=== PATIENT | female | born 1985 ===

== ENCOUNTER 2020-08-07 22:40 | Emergency (ER) | payer MEDICAID, OTHER ==
[~2020-08-07] VITALS: Ht 157.5 cm; Wt 74.8 kg
--- NOTE | 2020-08-08 01:07 | NUR ---
pt c/o of increased anxiety over the last 5 days. pt reports having cold and hot flashes, headaches, and sometimes her throat feeling like its closing. she reports panic attacks and has not had any in the past. pt is resting in bed in a calm, flat mood. nadn attached to monitors, vss. bed in low position, rails engaged. call light on lap at bedside translating for pt. translation form signed at registration. armband in place. wctm.
[2020-08-08] MEDS ORDERED: KETOROLAC 30 MG/1 ML ONE (02:54)
[2020-08-08] MEDS ORDERED: PROCHLORPERAZINE 5 MG/ML, 2ML ONE (02:54)
[2020-08-08] MEDS ORDERED: DIPHENHYDRAMINE 50 MG/ML, 1ML ONE (02:54)
[2020-08-08] MEDS ORDERED: SODIUM CHLORIDE FLUSH 10ML SYR IVF ONE (03:00)
[2020-08-08] MEDS ORDERED: SODIUM CHLORIDE 0.9% 1,000ML IVBOLUS ONE (03:00)
[2020-08-08] MEDS ORDERED: DIPHENHYDRAMINE 50 MG/ML, 1ML IVPush ONE (03:00)
[2020-08-08] MEDS ORDERED: KETOROLAC 30 MG/1 ML IVPush ONE (03:00)
[2020-08-08] MEDS ORDERED: PROCHLORPERAZINE 5 MG/ML, 2ML IVPush ONE (03:00)
[2020-08-08 03:28] LABS: ANION GAP 6 mmol/L (5-15); CALCIUM 9.3 mg/dL (8.5-10.1); CHLORIDE 107 mmol/L (98-107); CREATININE 0.63 mg/dL (0.55-1.02)
[2020-08-08 03:38] LABS: BASOPHILS % (AUTO) 0 % (0-1); EOSINOPHILS % (AUTO) 2 % (1-7); LYMPHOCYTES % (AUTO) 45 % (22-44); MEAN CORPUSCULAR HEMOGLOBIN 27.9 pg (27.0-34.8); MEAN CORPUSCULAR HGB CONC 34.7 g/dL (32.4-35.8); MEAN PLATELET VOLUME 8.1 fL (7.4-10.4); MONOCYTES % (AUTO) 6 % (2-9); NEUTROPHILS % (AUTO) 47 % (42-75); PLATELET COUNT 302 x10^3/uL (130-400); RED BLOOD COUNT 5.27 x10^6/uL (3.82-5.3)
--- NOTE | 2020-08-08 03:46 | NUR ---
Patient is resting comfortably in bed. Bed in lowest, rails engaged, call light on lap. Vital Signs within normal limits. WCTM.
[2020-08-08 04:48] VITALS: BP 119/65
--- NOTE | 2020-08-08 04:52 | NUR ---
Patient and spouse given discharge instructions and they have confirmed that they understand the instructions. Patient ambulatory with steady gait. NAD, all questions answered appropriately, denies additional needs at this time. No personal belongings left in room after discharge.
== END 2020-08-08 04:54 | disposition home or self-care (01) ==
LOC: ED 08-08 04:48
DX: G44.219 Episodic tension-type headache, not intractable (principal); F41.1 Generalized anxiety disorder; J02.8 Acute pharyngitis due to other specified organisms; R94.31 Abnormal electrocardiogram [ECG] [EKG]; B97.89 Other viral agents as the cause of diseases classified elsewhere; R06.89 Other abnormalities of breathing; R07.89 Other chest pain
CPT/HCPCS: 36415; 71045; 80048; 82040; 84703; 85025; 93005; 96361; 96374; 96375; 99285; J0780; J1200; J1885; J7030